=== PATIENT | female | born 1975 | race Caucasian/White ===

== ENCOUNTER 2021-11-06 00:29 | Emergency (ER) | payer OTHER ==
[2021-11-06] MEDS ORDERED: Ibuprofen 200 MG TAB ONE (00:49)
== END 2021-11-06 01:32 | disposition home or self-care (01) ==
LOC: CSHERS 00:29
DX: S50.11XA Contusion of right forearm, initial encounter (principal); F17.210 Nicotine dependence, cigarettes, uncomplicated; J45.909 Unspecified asthma, uncomplicated; W54.0XXA Bitten by dog, initial encounter; Z21 Asymptomatic human immunodeficiency virus [HIV] infection status; Z79.899 Other long term (current) drug therapy

== ENCOUNTER 2021-12-03 22:14 | Emergency (ER) | payer OTHER ==
[2021-12-03] MEDS ORDERED: Albuterol Sulfate 2.5 mg/3 ml Neb ONE (22:31)
[2021-12-03] MEDS ORDERED: Benzonatate 100 MG CAP ONE (23:41)
[2021-12-04 00:13] LABS: SARS-CoV-2 NAA Rapid Test Not Detected (NotDetected)
== END 2021-12-04 00:36 | disposition home or self-care (01) ==
LOC: CSHERS 22:14
DX: J45.901 Unspecified asthma with (acute) exacerbation (principal); Z20.822 Contact with and (suspected) exposure to COVID-19
CPT/HCPCS: 71045; 93005; J7611

== ENCOUNTER 2021-12-16 11:56 | Emergency (ER) | payer OTHER ==
[2021-12-16] MEDS ORDERED: Dexamethasone 4 MG TAB ONE (12:48)
[2021-12-16] MEDS ORDERED: Ibuprofen 200 MG TAB ONE (12:49)
== END 2021-12-16 13:57 | disposition home or self-care (01) ==
LOC: CSHERS 11:56
DX: M25.561 Pain in right knee (principal); M25.562 Pain in left knee; M54.50 Low back pain, unspecified; Z21 Asymptomatic human immunodeficiency virus [HIV] infection status; Y04.0XXA Assault by unarmed brawl or fight, initial encounter
CPT/HCPCS: J8540

== ENCOUNTER 2022-07-29 17:56 | Emergency (ER) | payer OTHER | END 2022-07-29 19:00 | disposition left against medical advice (07) | LOC: CSHERS 17:56 | DX: Z53.21 Procedure and treatment not carried out due to patient leaving prior to being seen by health care provider (principal) ==

== ENCOUNTER 2023-03-27 14:31 | Emergency (ER) | payer OTHER ==
[2023-03-27] MEDS ORDERED: Lorazepam 2 MG/ML VIAL ONE ×2 (15:23→18:19)
[2023-03-27 16:22] LABS: #Eosinphils 0.2 10x3/uL (0.0-0.5); #Monocytes 0.6 10x3/uL (0.0-1.1); #Neutrophils 2.1 10x3/uL (1.5-8.4); %Basophils 0.6 % (0.0-2.0); %Eosinophils 3.3 % (0.0-6.0); %Lymphocytes 47.7 % (18.0-47.0); %Monocytes 10.5 % (0.0-10.0); %Neutrophils 37.7 % (40.0-75.0); Hemoglobin 14.9 g/dL (12.0-15.5); Mean Corpuscular HGB CONC 33.9 g/dL (32.0-36.0); Mean Corpuscular Hemoglobin 34.1 pg (27.0-33.0); Mean Corpuscular Volume 100.7 fl (81.6-98.3); Mean Platelet Volume 9.9 fl (7.4-10.4); Platelet Count 240 10x3/uL (150-450); RBC Distribution Width 11.5 % (11.5-14.5); Red Blood Cell (RBC) Count 4.37 10x6/uL (3.90-5.03); White Blood Cell (WBC) Count 5.5 10x3/uL (3.5-10.5)
[2023-03-27 16:47] LABS: ALT (SGPT) 32 U/L (8-55); AST (SGOT) 33 U/L (5-34); Albumin 4.5 g/dL (3.5-5.0); Alkaline Phosphatase 83 U/L (40-110); Anion Gap 14 mmol/L (10-20); BUN (Urea Nitrogen) 13 mg/dL (7.0-18.7); Bilirubin, Total 0.4 mg/dL (0.2-1.2); Calc. Creatinine Clearance 0 mL/min (70-130); Calcium 9.5 mg/dL (7.8-10.44); Carbon Dioxide 24 mmol/L (22-29); Chloride 106 mmol/L (98-107); Estimated GFR 93; Globulin 2.7 g/dL (2.4-3.5); Glucose 121 mg/dL (70-105); Magnesium 2.1 mg/dL (1.6-2.6); Potassium 4.7 mmol/L (3.5-5.1); Protein, Total 7.2 g/dL (6.0-8.3); Sodium 139 mmol/L (136-145)
[2023-03-27 16:54] LABS: Troponin I Less than 0.010 ng/mL (< 0.028)
[2023-03-27] MEDS ORDERED: Metoclopramide HCl 10 MG/2 ML VIAL ONE (18:19)
== END 2023-03-27 19:09 | disposition home or self-care (01) ==
LOC: CSHERS 14:31
DX: R25.2 Cramp and spasm (principal); R11.0 Nausea; B20 Human immunodeficiency virus [HIV] disease
CPT/HCPCS: 80053; 83735; 84484; 85025; 93005; 96361; 96374; 96376; J2060; J2765

== ENCOUNTER 2023-06-13 20:54 | Emergency (ER) | payer OTHER ==
[2023-06-13] MEDS ORDERED: Ipratropium/Albuterol 3 ML NEB ONE (21:10)
[2023-06-13 21:43] LABS: Hematocrit 40.1 % (34.9-44.5); Hemoglobin 13.7 g/dL (12.0-15.5); Mean Corpuscular HGB CONC 34.2 g/dL (32.0-36.0); Mean Corpuscular Hemoglobin 33.3 pg (27.0-33.0); Mean Corpuscular Volume 97.3 fl (81.6-98.3); Mean Platelet Volume 9.3 fl (7.4-10.4); Platelet Count 223 10x3/uL (150-450); RBC Distribution Width 11.9 % (11.5-14.5); Red Blood Cell (RBC) Count 4.12 10x6/uL (3.90-5.03); White Blood Cell (WBC) Count 5.6 10x3/uL (3.5-10.5)
[2023-06-13 21:44] LABS: MDiff Complete? YES
[2023-06-13 21:48] LABS: ALT (SGPT) 36 U/L (8-55); AST (SGOT) 28 U/L (5-34); Albumin 4.4 g/dL (3.5-5.0); Alkaline Phosphatase 77 U/L (40-110); Anion Gap 14 mmol/L (10-20); BUN (Urea Nitrogen) 13 mg/dL (7.0-18.7); Bilirubin, Total 0.3 mg/dL (0.2-1.2); Calc. Creatinine Clearance 0 mL/min (70-130); Calcium 9.1 mg/dL (7.8-10.44); Carbon Dioxide 25 mmol/L (22-29); Chloride 105 mmol/L (98-107); Estimated GFR 89; Globulin 2.7 g/dL (2.4-3.5); Glucose 134 mg/dL (70-105); Potassium 4.3 mmol/L (3.5-5.1); Protein, Total 7.1 g/dL (6.0-8.3); Sodium 140 mmol/L (136-145)
[2023-06-13 21:51] LABS: Troponin I Less than 0.010 ng/mL (< 0.028)
[2023-06-13 22:29] LABS: Platelet Adequacy Comment Appears Adequate; RBC Morph Comment Within Normal Limits
[2023-06-13 22:30] LABS: Band 2 % (5-11); Eosinophils 3 % (0-10); Lymphocytes 55 % (21-51); Monocytes 14 % (0-10); Neutrophil 23 % (42-75); Reactive Lymphocytes 3 % (0-10)
== END 2023-06-13 23:55 | disposition home or self-care (01) ==
LOC: CSHERS 20:54
DX: R06.02 Shortness of breath (principal); M79.89 Other specified soft tissue disorders; Z21 Asymptomatic human immunodeficiency virus [HIV] infection status
CPT/HCPCS: 71045; 80053; 84484; 85025; 85379; 93005; 94640; 94760; 96374; J7620

== ENCOUNTER 2024-03-05 19:19 | Emergency (ER) | payer OTHER ==
[2024-03-05] MEDS ORDERED: HYDROcodone/Acetaminophen 5/325 mg Tablet ONE (20:57)
== END 2024-03-05 22:37 | disposition home or self-care (01) ==
LOC: CSHERS 19:19
DX: S90.122A Contusion of left lesser toe(s) without damage to nail, initial encounter (principal); W20.8XXA Other cause of strike by thrown, projected or falling object, initial encounter

== ENCOUNTER 2024-04-28 22:15 | Emergency (ER) | payer OTHER ==
[2024-04-28] MEDS ORDERED: Cyclobenzaprine 10 MG TAB ONE (23:07)
[2024-04-28] MEDS ORDERED: HYDROcodone/Acetaminophen 5/325 mg Tablet ONE (23:07)
== END 2024-04-28 23:51 | disposition home or self-care (01) ==
LOC: CSHERS 22:15
DX: J45.909 Unspecified asthma, uncomplicated (principal); M26.602 Left temporomandibular joint disorder, unspecified; Z79.51 Long term (current) use of inhaled steroids
CPT/HCPCS: 99283

== ENCOUNTER → 2025-05-07 | Emergency (ER) | payer OTHER ==
[~2025-05-07] MED LIST: Acetaminophen 500 MG TAB ONE; Cyclobenzaprine 10 MG TAB ONE; Ibuprofen 200 MG TAB ONE
== END ==
LOC: CSHERS 19:04
DX: R07.89 Other chest pain (principal); J45.909 Unspecified asthma, uncomplicated; B20 Human immunodeficiency virus [HIV] disease; G43.909 Migraine, unspecified, not intractable, without status migrainosus; Z75.3 Unavailability and inaccessibility of health-care facilities; Z55.6 Problems related to health literacy; W01.198A Fall on same level from slipping, tripping and stumbling with subsequent striking against other object, initial encounter
CPT/HCPCS: 71046